=== PATIENT | female | born 1950 | race Caucasian/White ===

== ENCOUNTER 2019-12-13 09:42 | Day surgery (SDC) | payer MEDICARE ==
[~2019-12-13] VITALS: Ht 172.7 cm; Wt 79.0 kg
[~2019-12-13 09:42] MED LIST: Advil200 M1 PO; BUSP15 PO; BUSPIRONE 7.5MG PO; DIAZ5 PO; DICL75ER; DICL75ER PO; ENOX40I SC; FISH1000 PO; Fish Oil Conce1 EACH PO; HYDMOR2 PO; HYDR1TAB94 PO; MELA3 PO; METO25 PO; METO25ER; METO25ER PO; OMEP20ER PO; Omeprazole20 M1 PO
--- NOTE | 2019-12-13 10:20 | NUR ---
Ambulatory in Day SurgeryPatient states colon prep results clear. History, Chart, Medications and Allergies reviewed before start of procedure.Patient states colon prep results clear. Patient confirms NPO status and agrees with scheduled surgery. Patient States Post-Procedure ride home has been arranged. Patient States Post-Procedure ride home has been arranged.
--- NOTE | 2019-12-13 10:32 | NUR ---
12/13/19 1032 Sandra Ledezma History, Chart, Medications and Allergies reviewed before start of procedure. Patient confirms NPO status and agrees with scheduled surgery. PATIENT DETERMINED TO BE ASA APPROPRIATE FOR PROPOFOL SEDATION PRIOR TO START OF PROCEDURE BY DR. COSTELLO. 3-LEAD EKG REVIEWED WITH PHYSICIAN PRIOR TO START OF PROCEDURE. MONITOR INTACT WITH CONTINUOUS PULSE OXIMETRY AND INTERMITTENT BP.
== END 2019-12-13 11:33 | disposition home or self-care (01) ==
LOC: ORSCMMR 09:42 → ORD 10:30 → ORSCMMR 10:30
PROVIDERS: Internal Medicine Gastroenterology
PROC: 0DBP8ZX Excision of Rectum, Via Natural or Artificial Opening Endoscopic, Diagnostic (ICD-10-PCS; principal; 2019-12-13 10:30)
PROC: 0DBN8ZX Excision of Sigmoid Colon, Via Natural or Artificial Opening Endoscopic, Diagnostic (ICD-10-PCS; principal; 2019-12-13 10:30)
PROC: 0DBE8ZX Excision of Large Intestine, Via Natural or Artificial Opening Endoscopic, Diagnostic (ICD-10-PCS; principal; 2019-12-13 10:30)
DX: R19.4 Change in bowel habit (principal); D12.0 Benign neoplasm of cecum; K63.5 Polyp of colon; K62.1 Rectal polyp; Z86.010 Personal history of colon polyps; K57.30 Diverticulosis of large intestine without perforation or abscess without bleeding; I45.6 Pre-excitation syndrome; F41.9 Anxiety disorder, unspecified; Z79.899 Other long term (current) drug therapy
CPT/HCPCS: 88305; J2704; J7120

== ENCOUNTER → 2020-11-20 | Outpatient (CLI) | payer MEDICARE ==
[2020-11-20 14:51] LABS: CHOL/HDL RATIO 2.3; Cholesterol 154 mg/dL (50-200); HDL Cholesterol 67 mg/dL (>39); Low Density Lipoprotein Chol 68 mg/dL (0-110); Triglycerides 94 mg/dL (30-160); Very Low Density Lipoprot Chol 18 mg/dL (6-32)
== END | disposition home or self-care (01) ==
LOC: LAB 11:12 → LAB SHORT 11:12
PROVIDERS: Family Medicine
DX: E78.5 Hyperlipidemia, unspecified (principal)
CPT/HCPCS: 80061

== ENCOUNTER → 2021-09-24 | Outpatient (CLI) | payer MEDICARE ==
[2021-09-24 19:42] LABS: BASOPHILS ABSOLUTE AUTO 0.07 K/mm3 (0.00-0.23); BASOPHILS PERCENT AUTO 1 % (0-2); EOSINOPHILS ABSOLUTE AUTO 0.14 K/mm3 (0.00-0.68); EOSINOPHILS PERCENT AUTO 2 % (0-6); Hematocrit 38.6 % (33.0-51.0); IMMATURE GRAN ABSOLUTE AUTO 0.03 K/mm3 (0.00-0.10); IMMATURE GRAN PERCENT AUTO 0 % (0-1); LYMPHOCYTES ABSOLUTE AUTO 2.08 K/mm3 (0.84-5.20); LYMPHOCYTES PERCENT AUTO 24 % (21-46); MONOCYTES ABSOLUTE AUTO 0.72 K/mm3 (0.16-1.47); MONOCYTES PERCENT AUTO 8 % (4-13); Mean Corpuscular HGB Conc 33.7 g/dL (31.5-36.5); Mean Corpuscular Volume 92 fL (80-100); Mean Platelet Volume 11.3 fL (9.1-12.4); NEUTROPHILS ABSOLUTE AUTO 5.56 K/mm3 (1.96-9.15); NEUTROPHILS PERCENT AUTO 65 % (41-73); Platelet Count 186 K/mm3 (150-400); RDW Coefficient Variation 12.2 % (11.7-14.2); RDW Standard Deviation 41.4 fL (35.1-46.3); Red Blood Cell Count 4.19 M/mm3 (3.80-5.20)
[2021-09-24 20:07] LABS: Alanine Aminotransfer (ALT/SGP 33 U/L (12-78); Albumin, Blood 4.1 g/dL (3.4-5.0); Albumin/Globulin Ratio 1.4 (0.8-1.8); Alk Phos 63 U/L (50-136); Anion Gap 8 mmol/L (6-16); Aspartate Aminotrans (AST/SGOT 28 U/L (12-37); Bilirubin, Total 1.3 mg/dL (0.1-1.0); Blood Urea Nitrogen 19 mg/dL (8-24); Bun/Creatinine Ratio 23.1 (12.0-20.0); CHOL/HDL RATIO 2.7; CO2, Blood 23 mmol/L (21-32); Chloride, Blood 109 mmol/L (98-108); Cholesterol 180 mg/dL (50-200); Creatinine, Blood 0.82 mg/dL (0.40-1.00); Globulin, Blood 2.9 g/dL (2.2-4.0); Glomerular Filtration Rate >60 (60-); Glucose, Blood 96 mg/dL (70-99); HDL Cholesterol 66 mg/dL (>39); LDL/HDL RATIO 1.3; Low Density Lipoprotein Chol 89 mg/dL (0-110); Sodium, Blood 140 mmol/L (136-145); Triglycerides 126 mg/dL (30-160); Very Low Density Lipoprot Chol 25 mg/dL (6-32)
== END | disposition home or self-care (01) ==
LOC: LAB 18:16 → LAB SHORT 18:16
PROVIDERS: Student in an Organized Health Care Education/Training Program
DX: E78.5 Hyperlipidemia, unspecified (principal); F41.8 Other specified anxiety disorders; F10.10 Alcohol abuse, uncomplicated
CPT/HCPCS: 80053; 80061; 85025

== ENCOUNTER 2023-03-06 19:43 | Inpatient (IN) | payer OTHER ==
[~2023-03-06] VITALS: Ht 170.2 cm; Wt 81.5 kg
[2023-03-06] MEDS ORDERED: ATOR20 PO (19:58)
[2023-03-06] MEDS ORDERED: METO25 PO ×2 (19:59)
[2023-03-06 20:23] LABS: BASOPHILS ABSOLUTE AUTO 0.05 K/mm3 (0.00-0.23); BASOPHILS PERCENT AUTO 1 % (0-2); EOSINOPHILS ABSOLUTE AUTO 0.11 K/mm3 (0.00-0.68); EOSINOPHILS PERCENT AUTO 2 % (0-6); Hematocrit 31.4 % (33.0-51.0); Hemoglobin 10.8 g/dL (11.5-16.0); IMMATURE GRAN ABSOLUTE AUTO 0.04 K/mm3 (0.00-0.10); IMMATURE GRAN PERCENT AUTO 1 % (0-1); LYMPHOCYTES ABSOLUTE AUTO 2.16 K/mm3 (0.84-5.20); LYMPHOCYTES PERCENT AUTO 32 % (21-46); MONOCYTES ABSOLUTE AUTO 0.49 K/mm3 (0.16-1.47); MONOCYTES PERCENT AUTO 7 % (4-13); Mean Corpuscular HGB 30.6 pg (26.0-34.0); Mean Corpuscular HGB Conc 34.4 g/dL (31.5-36.5); Mean Corpuscular Volume 89 fL (80-100); Mean Platelet Volume 11.4 fL (9.1-12.4); NEUTROPHILS ABSOLUTE AUTO 3.94 K/mm3 (1.96-9.15); NEUTROPHILS PERCENT AUTO 58 % (41-73); Platelet Count 128 K/mm3 (150-400); RDW Coefficient Variation 11.9 % (11.7-14.2); RDW Standard Deviation 38.1 fL (35.1-46.3); Red Blood Cell Count 3.53 M/mm3 (3.80-5.20); White Blood Cell Count 6.79 K/mm3 (4.00-11.30)
[2023-03-06 20:44] LABS: Bun/Creatinine Ratio 20.8 (12.0-20.0); Calcium, Blood 7.7 mg/dL (8.5-10.1); Creatinine, Blood 0.58 mg/dL (0.40-1.00); Potassium, Blood 3.8 mmol/L (3.5-5.5)
--- NOTE | 2023-03-06 23:00 | NUR ---
ADMIT NOTE; UPON ADMIT THE PT IS VISIBLY IN DISTRESS. THE PT IS YELLING OUT IN PAIN. THE PT ARRIVED TO THE FLOOR VIA ED GURNEY. WE TRANSFERED THE PT FROM THE ED GURNEY TO THE HOSPITAL BED VIA SLIDER SHEET, THE PT DID NOT TOLERATE IT WELL. THE PT IS AOX X4. THE PT IS UNABLE TO STAND AT THIS TIME. THE PT WAS MEDICATED FOR PAIN SHORTLY AFTER ARRIVAL. THE PT DENIES ANY SOB, CHEST PAIN/PRESSURE OR N/V AT THIS TIME. THE PT ONLY REPORTS PAIN IN HER L HIP R/T TO HER L HIP FRACTURE.
[2023-03-06 23:28] LABS: Source, Urine Foley catheter
[2023-03-06 23:32] VITALS: BP 128/58
[2023-03-06 23:38] LABS: Bilirubin, Urine Neg (Neg); Blood, Urine Neg (Neg); Glucose Qualitative, Urine Neg (Neg); Ketones, Urine Neg (Neg); Leukocyte Esterase, Urine Neg (Neg); Nitrite, Urine Neg (Neg); Protein, Urine Neg (Neg); Urobilinogen, Urine NORM (Normal)
[2023-03-06 23:56] LABS: Appearance, Urine Clear (Clear); Color, Urine Yellow (P-Yellow)
[2023-03-07] VITALS (17 sets, daily range): BP systolic 105–145; BP diastolic 52–114
--- NOTE | 2023-03-07 04:17 | NUR ---
SHIFT SUMMARY; NO ACUTE CHANGES SINCE ADMIT. THE PT HAS BEEN LAYING IN BED SINCE ADMIT. THE PT HAS BEEN MEDICATED A FEW TIMES FOR PAIN TONIGHT IN RELATION TO HER L HIP FX. THE PT REMAINS NPO SINCE MIDNIGHT IN PREPERATION FOR SURGERY TODAY. NS REMAINS RUNNING. THE PT IS UNABLE TO TOLERATE ROLLING THEREFORE A ORDER WAS OBTAINED TO INSERT A KAUFMAN CATHETER. THE KAUFMAN IS PATENT AND DRAINING TO GRAVITY. THE PT IS AXO X4 BUT ANXIOUS AND IN PAIN. CURRENTLY THE PT IS LAYING IN BED SLEEPING WITH THE BED IN THE LOWEST POSITION AND THE CALL LIGHT WITH REACH. THE PT IS ON CIWA PROTOCOL, THE SCORES ARE 3,3,4 TONIGHT. SEIZURE PADS ARE IN PLACE ORDERED. THE PT DENIES ANY SOB, CHEST PAIN/PRESSURE OR N/V.
[2023-03-07 04:52] LABS: BASOPHILS ABSOLUTE AUTO 0.02 K/mm3 (0.00-0.23); BASOPHILS PERCENT AUTO 0 % (0-2); EOSINOPHILS ABSOLUTE AUTO 0.03 K/mm3 (0.00-0.68); EOSINOPHILS PERCENT AUTO 0 % (0-6); Hematocrit 28.9 % (33.0-51.0); Hemoglobin 10.3 g/dL (11.5-16.0); IMMATURE GRAN ABSOLUTE AUTO 0.04 K/mm3 (0.00-0.10); IMMATURE GRAN PERCENT AUTO 0 % (0-1); LYMPHOCYTES ABSOLUTE AUTO 1.47 K/mm3 (0.84-5.20); LYMPHOCYTES PERCENT AUTO 12 % (21-46); MONOCYTES ABSOLUTE AUTO 0.71 K/mm3 (0.16-1.47); MONOCYTES PERCENT AUTO 6 % (4-13); Mean Corpuscular HGB 30.7 pg (26.0-34.0); Mean Corpuscular HGB Conc 35.6 g/dL (31.5-36.5); Mean Corpuscular Volume 86 fL (80-100); Mean Platelet Volume 11.2 fL (9.1-12.4); NEUTROPHILS ABSOLUTE AUTO 9.56 K/mm3 (1.96-9.15); NEUTROPHILS PERCENT AUTO 81 % (41-73); Platelet Count 126 K/mm3 (150-400); RDW Coefficient Variation 11.7 % (11.7-14.2); RDW Standard Deviation 37.2 fL (35.1-46.3); Red Blood Cell Count 3.36 M/mm3 (3.80-5.20); White Blood Cell Count 11.83 K/mm3 (4.00-11.30)
[2023-03-07 05:11] LABS: Albumin, Blood 3.4 g/dL (3.4-5.0); Albumin/Globulin Ratio 1.4 (0.8-1.8); Bilirubin, Total 1.1 mg/dL (0.1-1.0); Bun/Creatinine Ratio 22.8 (12.0-20.0); Creatinine, Blood 0.48 mg/dL (0.40-1.00); Globulin, Blood 2.4 g/dL (2.2-4.0); Magnesium, Blood 1.7 mg/dL (1.6-2.4); Potassium, Blood 3.9 mmol/L (3.5-5.5); Total Protein, Blood 5.8 g/dL (6.4-8.2)
--- NOTE | 2023-03-07 10:16 | NUR ---
TRANSFER SUMMARY PATIENT IS ALERT AND ORIENTED. PATIENT IS BEING TRANSFERRED TO 215 AFTER SURGERY. PATIENT WAS GIVEN TRAMADOL FOR PAIN. PATIENT COMPLAINED OF PAIN, NO SOB, NO NAUSESA OR VOMITTING. PATIENTS IS TRANSPORTING WITH PATIENT TO SURGERY AND NEW ROOM.
--- NOTE | 2023-03-07 11:24 | NUR ---
03/07/23 Fritz4 Lupillo Cary 1100 SECOND IV STARTED IN PT'S RIGHT WRIST BY BRADDISHERANALIA STEVEN.
--- NOTE | 2023-03-07 13:23 | NUR ---
PT ARRIVED TO THE ROOM AT 1255. PT DROWSY BUT AWAKE AND ORIENTED. PT COMPLAINS OF FEELING COLD BUT HAS A LOW GRADE TEMP. L HIP DRESSING C/D/I. PT ABLE TO MOVE ALL EXTREMITIES WELL. PT DENIES PAIN. PT'S S/O AT THE BEDSIDE FOR SUPPORT. WILL CONTINUE TO MONITOR.
--- NOTE | 2023-03-07 17:58 | NUR ---
SHIFT SUMMARY PT IS POD#0 FROM L HIP PINNING WITH DR. RAMIREZ. PAIN HAS BEEN MINIMAL POST-OP AND HAS BEEN MANAGED WITH TYLENOL. PT MOSTLY COMPLAINS OF PAIN IN HER L KNEE, NO SIGNS OF SWELLING OR INJURY. PT REPORTED MILD NAUSEA THAT RESOLVED WITH OUT INTERVENTION; PT EDUCATED TO EAT HER DINNER SLOWLY AND TO EAT SMALL AMOUNTS TO PREVENT FURTHER NAUSEA. WILL MONITOR UNTIL REPORT TO NOC RN
[2023-03-08 03:54] VITALS: BP 126/72
[2023-03-08 04:18] LABS: BASOPHILS ABSOLUTE AUTO 0.01 K/mm3 (0.00-0.23); BASOPHILS PERCENT AUTO 0 % (0-2); EOSINOPHILS PERCENT AUTO 0 % (0-6); Hematocrit 23.3 % (33.0-51.0); Hemoglobin 8.1 g/dL (11.5-16.0); IMMATURE GRAN ABSOLUTE AUTO 0.07 K/mm3 (0.00-0.10); IMMATURE GRAN PERCENT AUTO 1 % (0-1); LYMPHOCYTES ABSOLUTE AUTO 0.99 K/mm3 (0.84-5.20); LYMPHOCYTES PERCENT AUTO 8 % (21-46); MONOCYTES ABSOLUTE AUTO 1.24 K/mm3 (0.16-1.47); MONOCYTES PERCENT AUTO 10 % (4-13); Mean Corpuscular HGB 30.7 pg (26.0-34.0); Mean Corpuscular HGB Conc 34.8 g/dL (31.5-36.5); Mean Corpuscular Volume 88 fL (80-100); Mean Platelet Volume 11.5 fL (9.1-12.4); NEUTROPHILS ABSOLUTE AUTO 9.62 K/mm3 (1.96-9.15); NEUTROPHILS PERCENT AUTO 81 % (41-73); Platelet Count 125 K/mm3 (150-400); Red Blood Cell Count 2.64 M/mm3 (3.80-5.20); White Blood Cell Count 11.93 K/mm3 (4.00-11.30)
[2023-03-08 04:34] LABS: Anion Gap 2 mmol/L (6-16); Blood Urea Nitrogen 11 mg/dL (8-24); Bun/Creatinine Ratio 18.7 (12.0-20.0); CO2, Blood 22 mmol/L (21-32); Calcium, Blood 7.7 mg/dL (8.5-10.1); Chloride, Blood 105 mmol/L (98-108); Creatinine, Blood 0.59 mg/dL (0.40-1.00); Glomerular Filtration Rate 94 (60-); Glucose, Blood 131 mg/dL (70-99); Phosphorus, Blood 2.5 mg/dL (2.5-4.9); Potassium, Blood 4.3 mmol/L (3.5-5.5); Sodium, Blood 129 mmol/L (136-145)
--- NOTE | 2023-03-08 04:50 | NUR ---
SHIFT SUMMARY- A/O X4- BEDREST THROUGHOUT SHIFT. KAUFMAN IN PLACE DRAINING TO GRAVITY. REPORTS LITTLE PAIN IN HIP, ONE PO PAIN MEDCATION GIVEN. L HIP DRESSING C.D.I. PLEASANT AND COOPERATIVE W/ CARE. WILL CONTINUE TO MONITOR AND REPORT TO ONCOMING RN.
[2023-03-08 07:06] VITALS: BP 115/63
--- NOTE | 2023-03-08 08:41 | NUR ---
DR. RIVERA ROUNDED THIS AM. DISCUSSED LOW PLT LEVEL AND DECREASED H&H SINCE SURGERY, PLAN TO CONTINUE TO MONITOR. PT IS ASYMPTOMATIC OF LOW H&H. SHE WAS ALSO NOTIFIED OF LOW SODIUM LEVELS.
--- NOTE | 2023-03-08 10:00 | NUR ---
SHIFT ASSESSMENT SHIFT ASSESSMENT DOCUMENTATION BY DAISY GARDINER STUDENT NURSE REVIEWED. DOCUMENTATION WAS CONSISTANT WITH THIS RN'S ASSESSMENT WITH EXCEPTION TO PEDAL PULSES. PT'S PEDAL PULSES ON THE R SIDE ARE WEAKER THAN THE LEFT. PT REPORTS VASCULAR ISSUES ON THE R SIDE. R SIDE IS ALSO COOL TO THE TOUCH, L SIDE WARM. CAP REFIL EQUAL BILATERALLY.
[2023-03-08 10:01] LABS: Percent Saturation 30.8 % (15.0-50.0)
--- NOTE | 2023-03-08 12:05 | NUR ---
DISCUSSED PT'S LOW PLT, H&H, AND SODIUM WITH DURING AM ROUNDING. PT IS ASYMPTOMATIC. WILL CONTINUE TO MONITOR THROUGHOUT SHIFT.
--- NOTE | 2023-03-08 12:11 | NUR ---
SPOKE WITH DR. RAMIREZ REGARDING WEIGHT BEARING STATUS, OK FOR PT TO BE WBAT. PER DR. RAMIREZ OK FOR PT TO DISCHARGE WHEN PT IS MEDICALLY STABLE.
[2023-03-08 13:45] VITALS: BP 112/56
[2023-03-08 14:37] VITALS: BP 110/48
[2023-03-08 15:29] VITALS: BP 119/55
--- NOTE | 2023-03-08 16:00 | NUR ---
ORTHOSTATIC BLOOD PRESSURE AND TEMP PT HAS HAD AN ELEVATED HR INTERMITTENTLY T/O THE DAY. HR ELEVATED WHEN GETTING OOB WITH PHYSICAL THERAPY UP TO 127. PT REPORTED FEELING ANXIOUS ABOUT GETTING OOB. PT WAS ASSISTED BACK TO BED AND HR DECREASED TO WNL. THIS AFTERNOON ORTHOSTATIC VS TAKEN WHEN PT GOT OOB. LYING 119/55 HR 91 SITTING 97/59 HR 117 STANDING 133/66 HR 123 HR RECOVERED AFTER PT WAS ASSISTED BACK TO BED. PT DENIES CHEST PAIN AND SHORTNESS OF BREATH. PT REPORTED FEELING DIZZY UPON STANDING. PT HAD A LOW GRADE TEMP OF 99.4, DR. RIVERA NOTIFIED. PT HAS BEEN EDUCATED AND ENCOURAGED TO USE HER INCENTIVE SPIROMETER BY DAISY GARDINER STUDENT NURSE.
--- NOTE | 2023-03-08 16:34 | NUR ---
SHIFT SUMMARY PT IS POX1 FROM A L HIP PINNING. PAIN HAS BEEN MINIMAL TO MODERATE, MANAGED WITH TYLENOL AND ROXICODONE. PT HAS A GAUZE AND FOAM DRESSING THAT IS CDI. PT AMBULATES WITH A 2 NURSE ASSIST TO THE BEDSIDE COMMODE AND WHEN CHANGING POSITION IN BED. PT IS VOIDING APPROPRIATELY. PT'S PLT, H&H, AND SODIUM ARE LOW. PT HAS HAD AN INCREASED HR AND VARIATIONS IN BP THROUGHOUT SHIFT. DR RIVERA NOTIFIED. WILL CONTINUE TO MONITOR AND REPORT TO NEXT SHIFT.
[2023-03-08 19:45] VITALS: BP 91/65
--- NOTE | 2023-03-08 19:48 | NUR ---
SHIFT SUMMARY PT IS POD#1 FROM L GAMMA NAILING WITH DR. RAMIREZ. PT WORKED WITH THERAPY AND GOT OOB X1 TO THE CHAIR THIS AFTERNOON. PT IS TACHYCARDIC UP TO 127 WHEN OOB BUT HR RECOVERES DOWN TO LOW 100S WHEN AT REST. PT DENIES SOB AND CHEST PAIN. DR. RIVERA AWARE OF TACHYCARDIA WELL ORTHOSTATIC HYPOTENSION WHEN TRANSITIONING FROM LYING TO SITTING. PAIN MANAGED WITH TYLENOL AND OXYCODONE. PT'S CIWA SCORE HAS BEEN 5 T/O THE DAY. REPORT GIVEN TO MAMTA HELMS.
[2023-03-09] VITALS (10 sets, daily range): BP systolic 96–126; BP diastolic 45–63
[2023-03-09 04:25] LABS: BASOPHILS ABSOLUTE AUTO 0.04 K/mm3 (0.00-0.23); BASOPHILS PERCENT AUTO 1 % (0-2); EOSINOPHILS ABSOLUTE AUTO 0.06 K/mm3 (0.00-0.68); EOSINOPHILS PERCENT AUTO 1 % (0-6); Hematocrit 19.1 % (33.0-51.0); Hemoglobin 6.4 g/dL (11.5-16.0); IMMATURE GRAN ABSOLUTE AUTO 0.03 K/mm3 (0.00-0.10); IMMATURE GRAN PERCENT AUTO 0 % (0-1); LYMPHOCYTES ABSOLUTE AUTO 2.08 K/mm3 (0.84-5.20); LYMPHOCYTES PERCENT AUTO 27 % (21-46); MONOCYTES ABSOLUTE AUTO 0.96 K/mm3 (0.16-1.47); MONOCYTES PERCENT AUTO 13 % (4-13); Mean Corpuscular HGB 30.8 pg (26.0-34.0); Mean Corpuscular HGB Conc 33.5 g/dL (31.5-36.5); Mean Corpuscular Volume 92 fL (80-100); Mean Platelet Volume 11.8 fL (9.1-12.4); NEUTROPHILS ABSOLUTE AUTO 4.53 K/mm3 (1.96-9.15); NEUTROPHILS PERCENT AUTO 59 % (41-73); Platelet Count 94 K/mm3 (150-400); RDW Coefficient Variation 12.6 % (11.7-14.2); RDW Standard Deviation 41.7 fL (35.1-46.3); Red Blood Cell Count 2.08 M/mm3 (3.80-5.20)
[2023-03-09 04:39] LABS: Albumin, Blood 2.7 g/dL (3.4-5.0); Anion Gap 0 mmol/L (6-16); Blood Urea Nitrogen 16 mg/dL (8-24); Bun/Creatinine Ratio 24.8 (12.0-20.0); CO2, Blood 26 mmol/L (21-32); Calcium, Blood 7.7 mg/dL (8.5-10.1); Chloride, Blood 112 mmol/L (98-108); Creatinine, Blood 0.65 mg/dL (0.40-1.00); Glomerular Filtration Rate 92 (60-); Glucose, Blood 99 mg/dL (70-99); Phosphorus, Blood 2.2 mg/dL (2.5-4.9); Potassium, Blood 4.2 mmol/L (3.5-5.5); Sodium, Blood 138 mmol/L (136-145)
--- NOTE | 2023-03-09 07:46 | NUR ---
POD 2 S/P LEFT HIP NAILING. PT VSS. LEFT HIP DRESSING CDI W/MILD SWELLING NOTED AT HIP. PAIN NGD W/TYLENOL W/REP RELIEF. PT DENIED N/T, CAP REFILL WNL. CIWA 8, PT MED W/LIBRIUM X2 W/NOTED EFFECT. PT UP OOB W/FWW+2 MOD ASSIST. PT USING CALL LIGHT FOR ASSISTANCE. PLAN TO MOBILIZE W/PT.
[2023-03-09 14:08] LABS: Hematocrit 23.7 % (33.0-51.0); Hemoglobin 8.2 g/dL (11.5-16.0)
--- NOTE | 2023-03-09 18:29 | NUR ---
SHIFT SUMMARY POD 2 L HIP NAILING. PRESSURE TAPE & GAUZE DRESSINGS IN PLACE, C/D/I. PATIENT REPORTS MINIMAL PAIN, MANAGED WELL PER EMAR. 1P MIN-MOD ASSIST TO BATHROOM & CHAIR W/ FWW & GB. EATING, DRINKING, & VOIDING WELL. CIWA SCORES 1-2 T/O SHIFT, NO MEDICATION NEEDED. PATIENT HAD SOME ANXIETY REGARDING DISCHARGE PLANNING THIS SHIFT AFTER DISCUSSING WITH CM RN, REASSURED PATIENT NEEDED. PATIENT USES CALL LIGHT APPROPRIATELY, WILL REPORT TO ONCOMING RN AT 1900.
[2023-03-10 03:36] VITALS: BP 115/58
[2023-03-10 04:22] LABS: BASOPHILS ABSOLUTE AUTO 0.07 K/mm3 (0.00-0.23); BASOPHILS PERCENT AUTO 1 % (0-2); EOSINOPHILS ABSOLUTE AUTO 0.17 K/mm3 (0.00-0.68); EOSINOPHILS PERCENT AUTO 2 % (0-6); Hematocrit 22.1 % (33.0-51.0); Hemoglobin 7.7 g/dL (11.5-16.0); IMMATURE GRAN ABSOLUTE AUTO 0.05 K/mm3 (0.00-0.10); IMMATURE GRAN PERCENT AUTO 1 % (0-1); LYMPHOCYTES ABSOLUTE AUTO 2.84 K/mm3 (0.84-5.20); LYMPHOCYTES PERCENT AUTO 30 % (21-46); MONOCYTES ABSOLUTE AUTO 1.06 K/mm3 (0.16-1.47); MONOCYTES PERCENT AUTO 11 % (4-13); Mean Corpuscular HGB 31.2 pg (26.0-34.0); Mean Corpuscular HGB Conc 34.8 g/dL (31.5-36.5); Mean Corpuscular Volume 90 fL (80-100); Mean Platelet Volume 11.4 fL (9.1-12.4); NEUTROPHILS ABSOLUTE AUTO 5.33 K/mm3 (1.96-9.15); NEUTROPHILS PERCENT AUTO 56 % (41-73); Platelet Count 115 K/mm3 (150-400); RDW Coefficient Variation 13.5 % (11.7-14.2); RDW Standard Deviation 44.7 fL (35.1-46.3); Red Blood Cell Count 2.47 M/mm3 (3.80-5.20); White Blood Cell Count 9.52 K/mm3 (4.00-11.30)
[2023-03-10 04:38] LABS: Albumin, Blood 2.9 g/dL (3.4-5.0); Anion Gap 1 mmol/L (6-16); Blood Urea Nitrogen 10 mg/dL (8-24); Bun/Creatinine Ratio 16.2 (12.0-20.0); CO2, Blood 26 mmol/L (21-32); Calcium, Blood 8.1 mg/dL (8.5-10.1); Chloride, Blood 107 mmol/L (98-108); Creatinine, Blood 0.62 mg/dL (0.40-1.00); Glomerular Filtration Rate 93 (60-); Glucose, Blood 98 mg/dL (70-99); Phosphorus, Blood 2.9 mg/dL (2.5-4.9); Sodium, Blood 134 mmol/L (136-145)
--- NOTE | 2023-03-10 05:34 | NUR ---
SHIFT SUMMARY NO ACUTE CHANGES NOTED THROUGH THE NIGHT, PT HAS BEEN ABLE TO REST QUIETLY, VSS, ON RA, DRSG REMAINS C/D/I, SWELLING TO LEFT HIP NOTED, ICE PACK PLACED PERIODICALLY, PAIN MNGD PER EMAR, SBA USING FWW/GB TO THE BATHROOM, HIP PRECAUTIONS RE-EDUCATED & STRONGLY ENC, PT APPEARS TO BE FORGETFUL AT TIMES, VOIDING WNL, TOLERATING PO INTAKE, WCTM & REPORT TO ONCOMING RN
[2023-03-10 08:30] VITALS: BP 111/71
[2023-03-10 11:19] VITALS: BP 102/64
--- NOTE | 2023-03-10 12:09 | NUR ---
Spiritual Care | Pt. Request Pt. is sitting up in a recliner and welcomes my visit. Pt. verbalizes that she is awaiting D/C. Pt. is unsettled because she is afraid she has committed to "In home health care." Listen with emapathy and a caring presence. Pt. verbalized that her spouse would be pciking her up, and that if there are PT appointments she will make sure to make those appts. Communicated with the care management nurse. Pt. displayed evidence of reduced anxiety and verbalized gratitude for the spiritual care visit.
[2023-03-10 13:10] LABS: Hematocrit 23.9 % (33.0-51.0); Hemoglobin 8.2 g/dL (11.5-16.0)
[2023-03-10 15:01] VITALS: BP 115/67
--- NOTE | 2023-03-10 18:23 | NUR ---
SHIFT SUMMARY PT IS POST OP DAY 3 LEFT HIP NAILING. INCISIONS HAVE DRESSINGS OF GAUZE AND PRESSURE TAPE. DRESSINGS ARE CLEAN, DRY, AND INTACT. PT IS AXO X4. SHE EATS MOST OF HER PORTION AND VOIDS APPROPRIATELY. SHE IS ABLE TO AMBULATE TO THE BATHROOM WITH WALKER AND 1 PERSON STAFF ASSIST. HER PAIN IS WELL MANAGED AND SHE IS MEDICATED ACCORDING TO THE EMAR. CALL LIGHT IS IN REACH AND UTILIZED.
[2023-03-10 19:21] VITALS: BP 115/62
--- NOTE | 2023-03-11 03:43 | NUR ---
SHIFT SUMMARY A/O X4- POD4 R HIP REPAIR- GAUZE AND TAPE DRESSINGS C/D/I. VSS. VOIDING WELL AND TOLERATING PO INTAKE. PRN BOWEL CARE MEDICATIONS GIVEN PER EMAR. NO PAIN REPORTED THROUGHOUT SHIFT. AMBULATING W/ SBA, FWW, AND GB. PLEASANT AND COOPERATIVE W/ CARE. WILL CONTINUE TO MONITOR AND REPORT TO ONCOMING RN.
[2023-03-11 04:14] VITALS: BP 102/74
[2023-03-11 04:50] LABS: BASOPHILS ABSOLUTE AUTO 0.05 K/mm3 (0.00-0.23); BASOPHILS PERCENT AUTO 1 % (0-2); EOSINOPHILS ABSOLUTE AUTO 0.21 K/mm3 (0.00-0.68); EOSINOPHILS PERCENT AUTO 2 % (0-6); Hematocrit 23.3 % (33.0-51.0); IMMATURE GRAN ABSOLUTE AUTO 0.05 K/mm3 (0.00-0.10); IMMATURE GRAN PERCENT AUTO 1 % (0-1); LYMPHOCYTES ABSOLUTE AUTO 2.06 K/mm3 (0.84-5.20); LYMPHOCYTES PERCENT AUTO 22 % (21-46); MONOCYTES ABSOLUTE AUTO 0.94 K/mm3 (0.16-1.47); MONOCYTES PERCENT AUTO 10 % (4-13); Mean Corpuscular HGB Conc 34.3 g/dL (31.5-36.5); Mean Corpuscular Volume 90 fL (80-100); Mean Platelet Volume 11.4 fL (9.1-12.4); NEUTROPHILS ABSOLUTE AUTO 5.92 K/mm3 (1.96-9.15); NEUTROPHILS PERCENT AUTO 64 % (41-73); Platelet Count 154 K/mm3 (150-400); RDW Coefficient Variation 13.1 % (11.7-14.2); RDW Standard Deviation 42.7 fL (35.1-46.3); Red Blood Cell Count 2.58 M/mm3 (3.80-5.20); White Blood Cell Count 9.23 K/mm3 (4.00-11.30)
[2023-03-11 07:20] VITALS: BP 119/73
[2023-03-11] MEDS ORDERED: Acetaminophen650 M1 PO (10:18)
[2023-03-11] MEDS ORDERED: B-12500 MC2 PO (10:19)
[2023-03-11] MEDS ORDERED: OXYC5 PO (10:19)
[2023-03-11 10:26] LABS: Stool Occult Blood Guaiac 1 Neg (Neg)
--- NOTE | 2023-03-11 11:00 | NUR ---
DISCHARGE SUMMARY PT A&OX4, VSS/RA, LISA PO, VOIDING/BM, AMB SBA FWW, PAIN MANAGED, DRESSED SELF, IV DC'D. DC INS PROVIDED. PT AND REP UNDERSTANDING THOSE INSTRUCTIONS INCLUDING FU WITH SURGEON, SHYAM JOHNSON AMB W/FWW&GB ( WAS GB TRAINED BY PHYSICAL THERAPY), SAFETY, DRESSING CHANGES. LEFT FLOOR VIA WC WITH SUPERINTENDENT MAINTENANCE, TO GO HOME WITH WITH ALL PERSONAL POSSESSIONS INCLUDING DC PACKET, AQUACEL DRESSINGS, AND 1 NARC SCRIPT.
== END 2023-03-11 10:58 | disposition home health service (06) | DRG 481 ==
LOC: ER 19:43 → MEDS 19:44 → SURS 03-07 12:19
PROVIDERS: Emergency Medicine; Family Medicine; Orthopaedic Surgery; ADMIT Student in an Organized Health Care Education/Training Program
PROC: 0QS636Z Reposition Right Upper Femur with Intramedullary Internal Fixation Device, Percutaneous Approach (ICD-10-PCS; principal; 2023-03-07 07:30)
PROC: 30233N1 Transfusion of Nonautologous Red Blood Cells into Peripheral Vein, Percutaneous Approach (ICD-10-PCS; 2023-03-09)
DX: S72.142A Displaced intertrochanteric fracture of left femur, initial encounter for closed fracture (principal); E87.1 Hypo-osmolality and hyponatremia; M79.7 Fibromyalgia; I10 Essential (primary) hypertension; K75.9 Inflammatory liver disease, unspecified; D69.6 Thrombocytopenia, unspecified; F10.229 Alcohol dependence with intoxication, unspecified; D51.9 Vitamin B12 deficiency anemia, unspecified; E83.39 Other disorders of phosphorus metabolism; Z98.51 Tubal ligation status; Z88.2 Allergy status to sulfonamides; Z79.899 Other long term (current) drug therapy; W18.39XA Other fall on same level, initial encounter
CPT/HCPCS: 36415; 51702; 73502; 80048; 80053; 80069; 81003; 82272; 82607; 82728; 82746; 83540; 83550; 83735; 85014; 85018; 85025; 86850; 86900; 86901; 86923; 93005; 93010; 94760; 94762; 96361; 96374; 96375; 96376; 97110; 97116; 97162; 97166; 97530; 97535; 99285-25; A9270; C1713; G0378; J0690; J1100; J1885; J2250; J2270; J2405; J2704; J3010; J3411; J7030; P9016

== ENCOUNTER → 2023-07-29 | Outpatient (CLI) | payer OTHER ==
[~2023-07-29] MED LIST changes: +ATOR20 PO; +Acetaminophen650 M1 PO; +B-12500 MC2 PO; +OXYC5 PO
[2023-07-29 19:59] LABS: BASOPHILS ABSOLUTE AUTO 0.07 K/mm3 (0.00-0.23); BASOPHILS PERCENT AUTO 1 % (0-2); EOSINOPHILS ABSOLUTE AUTO 0.29 K/mm3 (0.00-0.68); EOSINOPHILS PERCENT AUTO 3 % (0-6); Hematocrit 37.7 % (33.0-51.0); Hemoglobin 12.9 g/dL (11.5-16.0); IMMATURE GRAN ABSOLUTE AUTO 0.02 K/mm3 (0.00-0.10); IMMATURE GRAN PERCENT AUTO 0 % (0-1); LYMPHOCYTES ABSOLUTE AUTO 2.65 K/mm3 (0.84-5.20); LYMPHOCYTES PERCENT AUTO 28 % (21-46); MONOCYTES PERCENT AUTO 8 % (4-13); Mean Corpuscular HGB 30.4 pg (26.0-34.0); Mean Corpuscular HGB Conc 34.2 g/dL (31.5-36.5); Mean Corpuscular Volume 89 fL (80-100); Mean Platelet Volume 11.6 fL (9.1-12.4); NEUTROPHILS ABSOLUTE AUTO 5.65 K/mm3 (1.96-9.15); NEUTROPHILS PERCENT AUTO 60 % (41-73); Platelet Count 169 K/mm3 (150-400); RDW Standard Deviation 42.1 fL (35.1-46.3); Red Blood Cell Count 4.25 M/mm3 (3.80-5.20); White Blood Cell Count 9.38 K/mm3 (4.00-11.30)
[2023-07-29 20:16] LABS: Iron Serum 70 ug/dL (50-170); Percent Saturation 21.5 % (15.0-50.0); Total Iron Binding Capacity 325 ug/dL (250-450); Very Low Density Lipoprot Chol 16 mg/dL (6-32)
[2023-07-29 20:24] LABS: Alanine Aminotransfer (ALT/SGP 33 U/L (12-78); Albumin, Blood 4.5 g/dL (3.4-5.0); Albumin/Globulin Ratio 1.7 (0.8-1.8); Alk Phos 77 U/L (50-136); Anion Gap 4 mmol/L (6-16); Aspartate Aminotrans (AST/SGOT 17 U/L (12-37); Bilirubin, Total 1.1 mg/dL (0.1-1.0); Blood Urea Nitrogen 12 mg/dL (8-24); Bun/Creatinine Ratio 18.6 (12.0-20.0); CHOL/HDL RATIO 2.4; CO2, Blood 24 mmol/L (21-32); Calcium, Blood 9.2 mg/dL (8.5-10.1); Chloride, Blood 110 mmol/L (98-108); Cholesterol 181 mg/dL (50-200); Creatinine, Blood 0.65 mg/dL (0.40-1.00); Ferritin, Serum 73 ng/mL (8-252); Globulin, Blood 2.7 g/dL (2.2-4.0); Glomerular Filtration Rate 92 (60-); Glucose, Blood 113 mg/dL (70-99); HDL Cholesterol 76 mg/dL (>39); LDL/HDL RATIO 1.2; Low Density Lipoprotein Chol 89 mg/dL (0-110); Sodium, Blood 138 mmol/L (136-145); Total Protein, Blood 7.2 g/dL (6.4-8.2); Triglycerides 81 mg/dL (30-160)
== END | disposition home or self-care (01) ==
LOC: LAB 16:25 → LAB SHORT 16:25
PROVIDERS: Nurse Practitioner Family
DX: D64.9 Anemia, unspecified (principal); E78.5 Hyperlipidemia, unspecified; I10 Essential (primary) hypertension; R53.83 Other fatigue
CPT/HCPCS: 80053; 80061; 82728; 83540; 83550; 84443; 85025

== ENCOUNTER 2025-01-16 08:57 | Day surgery (SDC) | payer OTHER ==
[2025-01-16] VITALS (17 sets, daily range): BP systolic 90–158; BP diastolic 49–92
[~2025-01-16] VITALS: Ht 170.2 cm; Wt 73.6 kg
[~2025-01-16 08:57] MED LIST changes: +Crestor40 MG PO; +Lactated Ringer's 1,000 ML IV SCH
--- NOTE | 2025-01-16 10:33 | NUR ---
History, Chart, Medications and Allergies reviewed before start of procedure. Ambulatory in Day Surgery WITH CANE. Pre-Op teaching done. Pt verbalizes understanding. Patient States Post-Procedure ride home has been arranged WITH SPOUSE. Patient confirms NPO status and agrees with scheduled surgery.
[2025-01-16] MEDS ORDERED: propofoL 20 ML IV ONE (10:46)
--- NOTE | 2025-01-16 10:54 | NUR ---
01/16/25 1054 Chad De La O CONFIRMED AND REVIEWED H&P, MEDCICATIONS, ALLERGIES, MEDICAL HISTORY, RESPIRATORY HISTORY, VITAL SIGNS, 3-LEAD EKG, CONSENTS, AND PHYSICIAN ORDERS. PATIENT CONFIRMS NPO STATUS AND AGREES WITH SCHEDULED PROCEDURE. MONITOR INTACT WITH CONTINUOUS PULSE OXIMETRY, CAPNOGRAPHY, 3-LEAD EKG, INTERMITTENT BP. SUPPLEMENTAL O2 TO BE TITRATED THROUGHOUT PROCEDURE TO MAINTAIN O2 SATURATION ABOVE 90%. PATIENT DETERMINED TO BE ASA APPROPRIATE FOR PROPOFOL SEDATION PRIOR TO START OF PROCEDURE BY DR. COSTELLO
[2025-01-16] MEDS ORDERED: Midazolam HCl 1MG / ML 2ML Vial ONE (10:55)
--- NOTE | 2025-01-16 11:46 | NUR ---
Patient up to Ambulate independently WITH PT'S OWN CANE. Gait steady. Discharge instructions reviewed with patient. Patient verbalizes understanding. Copy given to patient to take home, WELL FAMILY. Patient States Post-Procedure ride home has been arranged. Discharged via wheelchair to private car for ride home. PT TOLERATING PO, REPORTS READY TO GO HOME.
== END 2025-01-16 11:47 | disposition home or self-care (01) ==
LOC: ORSCMMR 08:57 → ORD 09:30 → ORSCMMR 09:30
PROVIDERS: Internal Medicine Gastroenterology
PROC: 0DBK8ZX Excision of Ascending Colon, Via Natural or Artificial Opening Endoscopic, Diagnostic (ICD-10-PCS; principal; 2025-01-16 09:30)
PROC: 0DBM8ZX Excision of Descending Colon, Via Natural or Artificial Opening Endoscopic, Diagnostic (ICD-10-PCS; principal; 2025-01-16 09:30)
PROC: 0DBN8ZX Excision of Sigmoid Colon, Via Natural or Artificial Opening Endoscopic, Diagnostic (ICD-10-PCS; principal; 2025-01-16 09:30)
DX: Z12.11 Encounter for screening for malignant neoplasm of colon (principal); D12.2 Benign neoplasm of ascending colon; D12.4 Benign neoplasm of descending colon; K63.5 Polyp of colon; K57.30 Diverticulosis of large intestine without perforation or abscess without bleeding; Z86.0101 Personal history of adenomatous and serrated colon polyps; E78.00 Pure hypercholesterolemia, unspecified; Z79.899 Other long term (current) drug therapy
CPT/HCPCS: 88305; J2250; J2704; J7120